=== PATIENT | male | born 1960 | race Caucasian/White ===

== ENCOUNTER 2018-03-21 09:30 | Day surgery (SDC) | payer MEDICAID ==
[~2018-03-21] VITALS: Ht 188 cm; Wt 113.6 kg
[2018-03-21 10:05] LABS: HEMATOCRIT 45.4 % (42.0-54.0); MCH 31.1 pg (26.0-34.0); MCHC 35.2 g/dL (31.0-37.0); MCV 88.2 fL (80.0-100.0); MEAN PLATELET VOLUME 9.2 fL (7.4-10.4); RBC 5.15 10x6/uL (4.20-6.10); RDW 12.6 % (11.5-14.5); WBC 7.6 10x3/uL (4.8-10.8)
[2018-03-21] MEDS ORDERED: ALBUTEROL SULF8.5 GM INH (11:14)
[2018-03-21] MEDS ORDERED: NEURONTIN600 MG PO (11:15)
[2018-03-21] MEDS ORDERED: HYDROCODON-ACE1 EA10 PO (11:15)
[2018-03-21] MEDS ORDERED: SYMBICORT 16010.2 GM INH (11:15)
[2018-03-21] MEDS ORDERED: NAPROSYN500 MG PO (11:16)
[2018-03-21] MEDS ORDERED: ADIPEX-P37.5 M1 PO (11:16)
[2018-03-21] MEDS ORDERED: TRAZODONE HCL150 MG PO (11:16)
[2018-03-21] MEDS ORDERED: XANAX1 MG PO (11:17)
[2018-03-21] MEDS ORDERED: OMEPRAZOLE20 M1 PO (11:18)
[2018-03-21 11:36] VITALS: BP 138/55; Ht 188 cm; Wt 113.6 kg
--- NOTE | 2018-03-21 15:57 | OP ---
PATIENT NAME: AYANA DIEHL MEDICAL RECORD: [id number] :64 LOCATION:[facility] ADMISSION DATE: SURGEON: DOMINGO HERNADEZ MD DATE OF OPERATION: 03/21/2018 PROCEDURE: EGD with biopsy. INDICATIONS: Mr. Diehl is a delightful 57-year-old gentleman with history of COPD/asthma, who presents for further evaluation of dysphagia and right upper quadrant pain. He notes that his mouth and throat have been dry, which he attributes to his medications, but has not had to regurgitate any food. His last EGD with ms was 09/04/2008 with finding of healed gastric ulcers, mild gastritis, and small hiatal hernia. He is scheduled for colonoscopy next month (history of colon polyps) and he presents for outpatient EGD. PREMEDICATIONS: Total IV anesthesia (propofol 350 mg). INSTRUMENT: Olympus video gastroscope. PROCEDURE AND FINDINGS: After receiving informed consent, Mr. Diehl's posterior pharynx was anesthetized with Cetacaine spray. He was placed in left lateral decubitus position and sedated as per anesthesia. After achieving adequate level of sedation, the gastroscope was introduced per orally and advanced into the duodenum without difficulty. The esophageal mucosa was without erythema, ulcers, strictures, or masses. The esophagus was "wide open" to the GE junction. A small sliding-type hiatal hernia was noted. Gastric mucosa was notable for petechial erythema in the cardia and the fundus. Mild diffuse erythema in the body and antrum. Antral biopsies were obtained to rule out Helicobacter pylori. Gastric peristaltic activity was seen during the exam. Pylorus was patent and competent. Duodenal mucosa was without erythema or ulcers, appeared normal through the second portion. Gastroscope was then withdrawn. Mr. Diehl tolerated the procedure well. No immediate complications. ASSESSMENT: 1. Small sliding-type hiatal hernia. 2. Mild gastritis. RECOMMENDATIONS: 1. Follow up histopathology. 2. Trial of Prilosec/omeprazole 40 mg p.o. daily. 3. Colonoscopy as scheduled (April). TRANSINT:[id number] Voice Confirmation ID: [id number] DOCUMENT ID: [id number] DOMINGO HERNADEZ MD at 0517 CC: LEVI MURRAY MD [id number] DICTATION DATE: 03/21/18 1334 CHILDREN COUNSELOR: 03/21/18 1550 [facility] [address] [place], [facility]
--- NOTE | 2018-03-21 17:26 | NUR ---
1430 IV DC'D. CATHETER INTACT. NO BLEEDING AT SITE. BANDAID APPLIED. DISCHARGE INSTRUCTIONS GIVEN. PT HAS INSTRUCTIONS ON FURTHER TESTING.
== END 2018-03-21 14:42 | disposition home or self-care (01) ==
LOC: D.OPS 09:30
PROVIDERS: Anesthesiology
DX: R13.10 Dysphagia, unspecified (principal); K44.9 Diaphragmatic hernia without obstruction or gangrene; K29.70 Gastritis, unspecified, without bleeding; J44.9 Chronic obstructive pulmonary disease, unspecified; Z01.812 Encounter for preprocedural laboratory examination

== ENCOUNTER 2018-05-07 08:14 | Day surgery (SDC) | payer MEDICAID ==
[~2018-05-07] VITALS: Ht 188 cm; Wt 113.6 kg
[~2018-05-07 08:14] MED LIST: ADIPEX-P37.5 M1 PO; ALBUTEROL SULF8.5 GM INH; HYDROCODON-ACE1 EA10 PO; NAPROSYN500 MG PO; NEURONTIN600 MG PO; OMEPRAZOLE20 M1 PO; SYMBICORT 16010.2 GM INH; TRAZODONE HCL150 MG PO; XANAX1 MG PO
[2018-05-07 08:49] LABS: BASOPHILS 0.5 % (0-2); CALC OSMOLALITY 280 mosm/kg (275-300); CALCIUM 8.8 mg/dL (8.5-10.1); CARBON DIOXIDE 29.7 mmol/L (21.0-32.0); CHLORIDE - SERUM 101 mmol/L (98-107); CREATININE - SERUM 0.8 mg/dL (0.6-1.3); EOSINOPHILS 2.2 % (0-7); GLUCOSE 125 mg/dL (74-106); HEMATOCRIT 45.5 % (42.0-54.0); HEMOGLOBIN 15.9 g/dL (13.5-17.5); IMMATURE GRANULOCYTES 1.4 % (0-5); LYMPHOCYTES 26.8 % (15-50); MCH 31.4 pg (26.0-34.0); MCHC 34.9 g/dL (31.0-37.0); MCV 89.9 fL (80.0-100.0); MEAN PLATELET VOLUME 9.6 fL (7.4-10.4); MONOCYTES 11.5 % (2-11); NEUTROPHILS 57.6 % (40-80); PLATELET COUNT 299 10x3/uL (130-400); POTASSIUM - SERUM 3.9 mmol/L (3.5-5.1); RBC 5.06 10x6/uL (4.20-6.10); RDW 13.1 % (11.5-14.5); SODIUM 139 mmol/L (136-145); UREA NITROGEN 17 mg/dL (7-18); WBC 9.6 10x3/uL (4.8-10.8); eGFR NON AFRICAN AMERICAN > 90 mL/min (90-120)
[2018-05-07] MEDS ORDERED: CARDIZEM CD180 MG PO (09:42)
[2018-05-07 09:48] VITALS: Ht 188 cm; Wt 113.6 kg
--- NOTE | 2018-05-07 12:42 | NUR ---
PT LEFT UNIT VIA WC AT 1240
--- NOTE | 2018-05-07 12:42 | NUR ---
DC INSTRUCTIONS GIVEN TO PT/FAMILY. STATES UNDERSTANDING. DC'D IV CATH FULLY INTACT.
--- NOTE | 2018-05-07 15:55 | OP ---
PATIENT NAME: AYANA DIEHL MEDICAL RECORD: [id number] :64 LOCATION:[facility] ADMISSION DATE: SURGEON: DOMINGO HERNADEZ MD DATE OF OPERATION: 05/07/2018 PROCEDURE: Colonoscopy. REFERRING PHYSICIAN: Dr. Levi Murray. INDICATIONS: Mr. Diehl is a delightful 57-year-old gentleman with a history of COPD/asthma, hematochezia, constipation, and a history of colon polyps. He had had an EGD 03/21/2018 to further evaluate symptoms of dysphagia with findings showing a small sliding type hiatal hernia and mild gastritis. Gastric biopsies were positive for H. pylori and he was treated with Biaxin, amoxicillin and b.i.d. proton pump inhibitor. His last colonoscopy was 12/26/2006 with findings showing a fair prep, normal terminal ileum, hepatic flexure and sigmoid colon polyps and mild internal hemorrhoids; hepatic flexure polyp was a tubular adenoma and the other polyp was hyperplastic. He presents for outpatient colonoscopy. PREMEDICATIONS: Total IV anesthesia (COPD and asthma) propofol 550 mg. INSTRUMENT: Olympus video colonoscope, pediatric. PROCEDURE AND FINDINGS: After receiving informed consent, Mr. Diehl was placed in left lateral decubitus position and sedated as per anesthesia. After achieving adequate level of sedation, digital rectal exam was performed that showed no external hemorrhoidal tags, fissures, or fistulas, normal sphincter tone, no palpable rectal masses. The colonoscope was introduced per rectally and advanced to the cecum without much difficulty. A very poor prep was present with semi-formed stool and thick liquid stool throughout the colon. Multiple lavages were performed. The cecum was partially obscured by stool and as a result of the prep, polyps and even small lesions may have been missed. As the colonoscope was withdrawn, multiple lavages were performed to evaluate the mucosa. No obstructive masses were present. No obvious polyps were seen. Retroflexion in the rectum showed mild internal hemorrhoids. Mr. Diehl tolerated the procedure well, no immediate complications. ASSESSMENT: 1. Mild internal hemorrhoids, source of hematochezia (no blood seen in the colon). 2. Poor prep. 3. History of colon polyps. 4. Constipation. RECOMMENDATIONS: 1. MiraLax daily to b.i.d. as needed. 2. Colace 100 mg daily. 3. If no relief with MiraLax and Colace, consider Movantik. 4. Anusol-HC suppositories 1 per rectum b.i.d. for 14 days. 5. Recommend screening colonoscopy in 5 years with more thorough prep. TRANSINT:[id number] Voice Confirmation ID: [id number] DOCUMENT ID: [id number] OPERATIVE REPORT [id number] AYANA DIEHL TERRI MD at 1555 CC: LEVI MURRAY MD [id number] DICTATION DATE: 05/07/18 1135 SPECIMEN PROCESSOR: 05/07/18 1229 [facility] 05/07/18 [facility] [address] [place] [address]
== END 2018-05-07 12:40 | disposition home or self-care (01) ==
LOC: D.OPS 08:14
PROVIDERS: Anesthesiology; ATTEND Internal Medicine Gastroenterology
DX: K64.8 Other hemorrhoids (principal); Z86.010 Personal history of colon polyps; K59.00 Constipation, unspecified; J44.9 Chronic obstructive pulmonary disease, unspecified; Z01.812 Encounter for preprocedural laboratory examination